=== PATIENT | male | born 1960 | race Two or more races ===

== ENCOUNTER 2024-04-30 11:40 | Emergency (ER) | payer OTHER ==
[~2024-04-30] VITALS: Ht 165.1 cm; Wt 86.2 kg
[2024-04-30] MEDS ORDERED: GLUMETZA500 MG PO (11:56)
[2024-04-30] MEDS ORDERED: ROSUVASTATIN CA20 MG PO (11:56)
[2024-04-30] MEDS ORDERED: COZAAR100 MG PO (11:56)
[2024-04-30] MEDS ORDERED: LASIX20 MG PO (11:57)
[2024-04-30] MEDS ORDERED: CHILDREN'S ASPI81 MG PO (11:57)
[2024-04-30] MEDS ORDERED: CARVEDILOL ER40 MG (11:57)
[2024-04-30] MEDS ORDERED: KETOROLAC TROMETHAMINE 15 MG VIAL IM STA (12:29)
[2024-04-30] MEDS ORDERED: KETOROLAC TROMETHAMINE 30 MG VIAL ONE (12:50)
[2024-04-30] MEDS ORDERED: KETO10TA2 PO (14:46)
== END 2024-04-30 15:11 | disposition home or self-care (01) ==
LOC: ER 11:41
DX: M77.8 Other enthesopathies, not elsewhere classified (principal); M77.9 Enthesopathy, unspecified; I10 Essential (primary) hypertension; E11.9 Type 2 diabetes mellitus without complications; Z79.84 Long term (current) use of oral hypoglycemic drugs
CPT/HCPCS: 73030; 96372; 99283; J1885

== ENCOUNTER 2024-05-05 03:10 | Inpatient (IN) | payer OTHER ==
[~2024-05-05] VITALS: Ht 165.1 cm; Wt 86.2 kg
[~2024-05-05 03:10] MED LIST: CARVEDILOL ER40 MG; CHILDREN'S ASPI81 MG PO; COZAAR100 MG PO; GLUMETZA500 MG PO; KETO10TA2 PO; LASIX20 MG PO; ROSUVASTATIN CA20 MG PO
[2024-05-05] MEDS ORDERED: NITROGLYCERIN IN 5 % DEXTROSE 50 MG/250 ML KIT IV STA (03:48)
[2024-05-05] MEDS ORDERED: CLOPIDOGREL BISULFATE 75 MG TABLET PO STA (03:49)
[2024-05-05] MEDS ORDERED: ASPIRIN 81 MG TAB.CHEW PO STA (03:50)
[2024-05-05] MEDS ORDERED: FUROsemide 20 MG/2 ML VIAL IV STA (03:51)
[2024-05-05] MEDS ORDERED: RINGERS SOLUTION,LACTATED 1,000 ML IV STA (03:52)
[2024-05-05] MEDS ORDERED: CLOPIDOGREL BISULFATE 75 MG TABLET PO ONE ×2 (04:03→10:36)
[2024-05-05] MEDS ORDERED: FUROsemide 20 MG/2 ML VIAL ONE ×2 (04:03→10:36)
[2024-05-05] MEDS ORDERED: NITROGLYCERIN IN 5 % DEXTROSE 50 MG/250 ML BOTTLE IV ONE (04:04)
[2024-05-05 04:06] LABS: HEMOGLOBIN 13.6 g/dL (13-16.00); MEAN CELL VOLUME 94.9 fL (80.0-100.00); MEAN CORPUSCULAR HEMOGLOBIN 32.2 pg (27.00-32.0); MEAN CORPUSCULAR HGB CONC 33.9 g/dl (32.0-36.0); PLATELET COUNT 142 K/uL (150-450); RED BLOOD COUNT 4.22 M/uL (4.00-6.00); RED CELL DISTRIBUTION WIDTH 13.8 % (11.5-14.5)
[2024-05-05 04:40] LABS: ALBUMIN 3.8 gm/dL (3.4-5.0); BILIRUBIN TOTAL 0.81 mg/dL (0.3-1.2); CALCIUM 9.7 mg/dL (8.5-10.1); CREATININE SERUM 1.07 mg/dL (0.70-1.30); GFR 69.36; GLOBULINA 3.6 G/DL (2.4-3.5); POTASSIUM 4.21 mEq/L (3.5-5.1); TOTAL PROTEIN 7.4 gm/dL (6.4-8.2)
[2024-05-05 04:56] LABS: INR 1.07; PARTIAL THROMBOPLASTIN TIME 32.6 SECONDS (22.0-34.0); PROTHROMBIN TIME 11.2 SECONDS (9.0-11.5)
[2024-05-05 05:40] LABS: ABG PH 7.382 (7.35-7.45); ABG PO2 121.3 mmHg (80-100); ABG pCO2 41.8 mmHg (35-45); BASE EXCESS -0.6 mmol/l; BICARBONATE 24.3 mmol/l (23-25); SaO2 98.6 %; Tco2 25.6 mmol/l; o2 28 %
[2024-05-05 05:41] LABS: allen test SATISFACTORY; puncture site RADIAL RIGHT
[2024-05-05] MEDS ORDERED: ACETAMINOPHEN 500 MG GEL..CAP PO PRN (08:45)
[2024-05-05] MEDS ORDERED: NITROGLYCERIN IN 5 % DEXTROSE 250 ML IV SCH ×2 (08:45→09:30)
[2024-05-05] MEDS ORDERED: CLOPIDOGREL BISULFATE 75 MG TABLET PO SCH (09:00)
[2024-05-05] MEDS ORDERED: ENOXAPARIN SODIUM 40 MG/0.4 ML SYRINGE SUBCUTANEO SCH (09:00)
[2024-05-05] MEDS ORDERED: PANTOPRAZOLE SODIUM 40 MG TABLET.DR PO SCH (09:00)
[2024-05-05] MEDS ORDERED: FUROsemide 20 MG/2 ML VIAL IV SCH (09:00)
[2024-05-05] MEDS ORDERED: IRBESARTAN 75 MG TABLET PO SCH (09:00)
[2024-05-05] MEDS ORDERED: CARVEDILOL 12.5 MG TABLET PO SCH (09:00)
[2024-05-05] MEDS ORDERED: ASPIRIN 81 MG TABLET.EC PO SCH (09:00)
[2024-05-05] MEDS ORDERED: ENOXAPARIN SODIUM 40 MG/0.4 ML SYRINGE SUBCUTANEO ONE (10:36)
[2024-05-05] MEDS ORDERED: CLONAZEPAM 0.5 MG TABLET PO SCH (21:00)
[2024-05-05] MEDS ORDERED: DOCUSATE SODIUM 100MG CAP PO SCH (21:00)
[2024-05-06 04:11] LABS: ALBUMIN 3.6 gm/dL (3.4-5.0); ALKALINE PHOSPHATASE 57 U/L (50-136); ANION GAP 8 (10.0-20.0); AST/SGOT 8 U/L (15-37); BILIRUBIN TOTAL 0.86 mg/dL (0.3-1.2); BILIRUBIN,CONJUGATED 0.24 mg/dL (0.0-0.2); BILIRUBIN,UNCONJUGATED 0.62 mg/dL (0.0-0.6); BLOOD UREA NITROGEN 22 mg/dL (7-18); BUN CREA RATIO 19 (7.0-25.0); CALCIUM 8.9 mg/dL (8.5-10.1); CARBON DIOXIDE 33 mEq/L (21-32); CHLORIDE 103 mmol/L (98-107); CHOLESTEROL 108 mg/dL (0-200); CREATININE SERUM 1.14 mg/dL (0.70-1.30); GFR 64.47; GLUCOSE FASTING 185 mg/dL (65-100); HDL 36 mg/dl (40-60); LDL 40 mg/dl (0-130); OSMOLALITY SERUM 288 MOSM/KG (275-295); PHOSPHOROUS 4.9 mg/dL (2.5-4.9); POTASSIUM 3.64 mEq/L (3.5-5.1); SODIUM 140 mmol/L (136-145); T4 FREE 0.97 NG/ML (0.76-1.46); TOTAL IRON BINDING CAPACITY 281 ug/dl (250-450); TOTAL PROTEIN 6.3 gm/dL (6.4-8.2); TRIGLYCERIDES 162 mg/dL (0-150); TSH 0.766 uIU/mL (0.358-3.74); VLDL 32 (0-39)
[2024-05-06 04:13] LABS: ALT/SGPT < 6 U/L (12-78); C-REACTIVE PROTEIN 1.46 MG/DL (0.00-0.29)
[2024-05-06] MEDS ORDERED: CLOPIDOGREL BIS75 MG PO (09:27)
[2024-05-06] MEDS ORDERED: COZAAR100 MG PO (09:28)
[2024-05-06] MEDS ORDERED: CARVEDILOL25 MG PO (09:28)
[2024-05-06] MEDS ORDERED: LASIX40 MG PO (09:29)
[2024-05-06] MEDS ORDERED: ST. JOSEPH ASPI81 M2 PO (09:29)
[2024-05-06] MEDS ORDERED: CLONAZEPAM0.5 MG PO (09:29)
[2024-05-06] MEDS ORDERED: COLACE100 MG PO (09:29)
[2024-05-06] MEDS ORDERED: PANTOPRAZOLE SO40 MG PO (09:30)
[2024-05-06] MEDS ORDERED: ALDACTONE25 MG PO (09:30)
[2024-05-06] MEDS ORDERED: ROSUVASTATIN CA20 MG PO (09:31)
[2024-05-06] MEDS ORDERED: METFORMIN HCL500 M4 PO (09:31)
[2024-05-06] MEDS ORDERED: JARDIANCE25 MG PO (09:32)
== END 2024-05-06 11:38 | disposition home or self-care (01) | DRG 293 ==
LOC: ER 03:11 → SEC-K 09:15 → MEDI 09:15
PROVIDERS: ADMIT Internal Medicine; ATTEND Internal Medicine
PROC: 4A033R1 Measurement of Arterial Saturation, Peripheral, Percutaneous Approach (ICD-10-PCS; principal; 2024-05-05)
PROC: B246ZZZ Ultrasonography of Right and Left Heart (ICD-10-PCS; 2024-05-05)
PROC: 4A12X4Z Monitoring of Cardiac Electrical Activity, External Approach (ICD-10-PCS; 2024-05-05)
DX: I50.9 Heart failure, unspecified (principal); Z20.822 Contact with and (suspected) exposure to COVID-19

== ENCOUNTER 2025-07-29 08:32 | Inpatient (IN) | payer OTHER ==
[~2025-07-29] VITALS: Ht 152.4 cm; Wt 86.2 kg
[~2025-07-29 08:32] MED LIST changes: +ALDACTONE25 MG PO; +CARVEDILOL25 MG PO; +CLONAZEPAM0.5 MG PO; +CLOPIDOGREL BIS75 MG PO; +COLACE100 MG PO; +JARDIANCE25 MG PO; +LASIX40 MG PO; +METFORMIN HCL500 M4 PO; +PANTOPRAZOLE SO40 MG PO; +ST. JOSEPH ASPI81 M2 PO
[2025-07-29] MEDS ORDERED: MORPHINE SULFATE 2 MG/ML SYRINGE IV PRN (08:45)
[2025-07-29] MEDS ORDERED: NIFEDIPINE 10 MG CAPSULE PO ONE ×2 (08:45→08:46)
[2025-07-29] MEDS ORDERED: IPRATROPIUM BROMIDE 0.5 MG/2.5 ML AMPUL.NEB IH SCH (08:45)
[2025-07-29] MEDS ORDERED: LEVALBUTEROL HCL 1.25 MG/3 ML SOLUTION IH SCH (08:45)
[2025-07-29] MEDS ORDERED: CEFTRIAXONE SODIUM 1,000 MG VIAL IV ONE (08:45)
[2025-07-29] MEDS ORDERED: FAMOtidine 10 MG/ML (4ML VIAL) IV ONE (08:45)
[2025-07-29] MEDS ORDERED: METHYLPREDNISOLONE SOD SUCC 125 MG VIAL IV ONE (08:45)
[2025-07-29] MEDS ORDERED: CEFTRIAXONE SODIUM 1,000 MG VIAL ONE (08:47)
[2025-07-29] MEDS ORDERED: METHYLPREDNISOLONE SOD SUCC 125 MG VIAL ONE (08:47)
[2025-07-29] MEDS ORDERED: FAMOTIDINE/PF 20 MG/2 ML VIAL ONE (08:47)
[2025-07-29] MEDS ORDERED: LEVALBUTEROL HCL 1.25 MG/3 ML SOLUTION IH ONE (08:56)
[2025-07-29] MEDS ORDERED: IPRATROPIUM BROMIDE 0.5 MG/2.5 ML AMPUL.NEB IH ONE (08:57)
[2025-07-29] MEDS ORDERED: 0.9 % SODIUM CHLORIDE 1,000 ML IV SCH (09:00)
[2025-07-29 09:36] LABS: BASO % 0.4 % (0.1-1.2); EOS # 0.10 (0.04-0.54); EOS % 1.2 % (0.7-7.0); LYMPH # 1.01 (1.18-3.74); LYMPH % 12.5 % (19.3-53.1); MEAN PLATELET VOLUME 12.10 fl (9.4-12.4); MONO # 0.49 (0.24-0.82); MONO % 6.1 % (4.7-12.5); NEUT # 6.45 (1.56-6.13); NEUT % 79.7 % (34.0-71.1); RED CELL DISTRIBUTION WIDTH 13.4 % (11.6-14.4)
[2025-07-29 09:47] LABS: INR 1.11
[2025-07-29 10:00] LABS: D DIMER 0.73 MG/L
[2025-07-29 10:03] LABS: URINE APPEARANCE Clear; URINE BILIRRUBIN Negative (NEGATIVE); URINE BLOOD Negative; URINE COLOR Yellow; URINE LEUKOCYTE Negative; URINE NITRATE Negative; URINE UROBILINOGEN 1.0 E.U./dl
[2025-07-29 10:07] LABS: URINE BACTERIA 9.5 uL (0.0-1933); URINE EPITHELIAL CELLS 3.8 uL (0.0-38.8); URINE RBC 4.6 uL (0.0-20.8); URINE WBC 5.6 uL (0.0-23.2)
[2025-07-29 10:11] LABS: URINE CAST 0.29 uL (0.0-1.40); URINE GLUCOSE >=1000 MG/DL (NEGATIVE); URINE KETONE 40 (NEGATIVE); URINE PROTEIN 100 (NEGATIVE)
[2025-07-29 10:29] LABS: ALT/SGPT 21.0 U/L (12-78); AST/SGOT 13.0 U/L (15-37); BILIRUBIN TOTAL 1.32 mg/dL (0.3-1.2); BUN CREA RATIO 22.0 (7.0-25.0); CREATININE SERUM 1.05 mg/dL (0.70-1.30); GFR 70.67; GLOBULINA 3.2 G/DL (2.4-3.5); GLUCOSE FASTING 111.0 mg/dL (65-100); OSMOLALITY SERUM 289.0 MOSM/KG (275-295)
[2025-07-29] MEDS ORDERED: AZITHROMYCIN 500 MG VIAL IV SCH (18:30)
[2025-07-29] MEDS ORDERED: CEFTRIAXONE SODIUM 2,000 MG in 0.9 % SODIUM CHLORIDE 100 ML IV SCH (18:30)
[2025-07-29] MEDS ORDERED: ENOXAPARIN SODIUM 40 MG/0.4 ML SYRINGE SUBCUTANEO SCH (18:31)
[2025-07-29] MEDS ORDERED: ATORVASTATIN CALCIUM 20 MG TABLET PO SCH (18:36)
[2025-07-29] MEDS ORDERED: ACETAMINOPHEN 325 MG TABLET PO PRN (18:45)
[2025-07-29] MEDS ORDERED: DEXTROSE 50 % IN WATER 0.5 G/ML DISP.SYRIN IV PRN (18:45)
[2025-07-29] MEDS ORDERED: INSULIN LISPRO 1,000 UNIT/10 ML UNITS SUBCUTANEO PRN (18:45)
[2025-07-29] MEDS ORDERED: CARVEDILOL 12.5 MG TABLET PO SCH (18:46)
[2025-07-29] MEDS ORDERED: LISINOPRIL 10 MG TABLET PO SCH (18:48)
[2025-07-29 22:28] VITALS: BP 106/65; O2SAT 96
[2025-07-29 22:32] VITALS: BP 165/90; O2SAT 95
[2025-07-30 00:40] VITALS: BP 147/80; O2SAT 97
[2025-07-30 07:27] LABS: CHOL HDL RATIO 4.1 (0-5.0); HDL 46.0 mg/dl (40-60); LDL 123.0 mg/dl (0-130); TSH 0.768 uIU/mL (0.358-3.74); VLDL 20.0 (0-39)
[2025-07-30 08:36] VITALS: BP 125/76; O2SAT 95
[2025-07-30] MEDS ORDERED: LEVALBUTEROL HCL 0.63 MG/3 ML SOLUTION IH SCH (17:00)
[2025-07-30 17:27] VITALS: BP 109/74; O2SAT 98
[2025-07-31] VITALS (7 sets, daily range): BP systolic 120–127; BP diastolic 75–90; O2SAT 93–100
[2025-07-31 07:03] LABS: BASO % 0.3 % (0.1-1.2); EOS # 0.16 (0.04-0.54); EOS % 1.8 % (0.7-7.0); LYMPH # 1.97 (1.18-3.74); LYMPH % 22.7 % (19.3-53.1); MEAN PLATELET VOLUME 12.70 fl (9.4-12.4); MONO # 0.53 (0.24-0.82); MONO % 6.1 % (4.7-12.5); NEUT # 5.95 (1.56-6.13); NEUT % 68.9 % (34.0-71.1); RED CELL DISTRIBUTION WIDTH 13.6 % (11.6-14.4)
[2025-07-31 07:54] LABS: ALT/SGPT 22 U/L (12-78); AST/SGOT 7 U/L (15-37); BILIRUBIN TOTAL 0.80 mg/dL (0.3-1.2); BUN CREA RATIO 28 (7.0-25.0); CREATININE SERUM 1.01 mg/dL (0.70-1.30); GFR 73.91; GLOBULINA 2.8 G/DL (2.4-3.5); GLUCOSE FASTING 91 mg/dL (65-100); OSMOLALITY SERUM 288 MOSM/KG (275-295)
[2025-07-31 08:05] LABS: MYCOPLASMA PNEUMONIAE IGM NON REACTIVE (NO REACTIVE)
[2025-08-01 00:05] VITALS: BP 120/71; O2SAT 97
[2025-08-01 00:15] VITALS: O2SAT 100
[2025-08-01 07:30] VITALS: BP 125/55; O2SAT 97
[2025-08-01 12:16] VITALS: O2SAT 98
[2025-08-01 16:00] VITALS: BP 125/77; O2SAT 97
[2025-08-02 00:30] VITALS: BP 121/66; O2SAT 95
[2025-08-02 02:12] VITALS: O2SAT 100
[2025-08-02 05:52] VITALS: O2SAT 98
[2025-08-02] MEDS ORDERED: FUERA DE FORMULARIO 1 U FF PO SCH (09:00)
[2025-08-02] MEDS ORDERED: EPLERENONE 25 MG PO SCH (09:00)
[2025-08-02 09:10] VITALS: BP 122/72; O2SAT 97
[2025-08-02 15:35] VITALS: BP 122/75; O2SAT 96
[2025-08-03 00:16] VITALS: O2SAT 95
[2025-08-03 00:30] VITALS: BP 140/79; O2SAT 98
[2025-08-03 08:14] VITALS: BP 121/76; O2SAT 95
[2025-08-04] MEDS ORDERED: EPLERENONE 25 MG TABLET PO SCH (09:00)
== END 2025-08-03 13:10 | disposition home or self-care (01) | DRG 291 ==
LOC: ER 08:33 → SURG 18:46 → SEC-K 18:46 → SURG 20:22
PROVIDERS: General Practice; Internal Medicine Infectious Disease; ADMIT Internal Medicine; ATTEND Internal Medicine
PROC: B246ZZZ Ultrasonography of Right and Left Heart (ICD-10-PCS; 2025-07-29)
PROC: BB24YZZ Computerized Tomography (CT Scan) of Bilateral Lungs using Other Contrast (ICD-10-PCS; 2025-07-29)
PROC: 4A12X4Z Monitoring of Cardiac Electrical Activity, External Approach (ICD-10-PCS; principal; 2025-07-30)
PROC: 3E0F7GC Introduction of Other Therapeutic Substance into Respiratory Tract, Via Natural or Artificial Opening (ICD-10-PCS; 2025-07-30)
DX: I11.0 Hypertensive heart disease with heart failure (principal); I50.23 Acute on chronic systolic (congestive) heart failure; J18.9 Pneumonia, unspecified organism; J90 Pleural effusion, not elsewhere classified; I42.8 Other cardiomyopathies; I34.0 Nonrheumatic mitral (valve) insufficiency; E11.9 Type 2 diabetes mellitus without complications; E78.5 Hyperlipidemia, unspecified; Z95.0 Presence of cardiac pacemaker; Z79.84 Long term (current) use of oral hypoglycemic drugs; R09.02 Hypoxemia